=== PATIENT | male | born 1960 | race Caucasian/White ===

== ENCOUNTER 2016-12-07 00:20 | Emergency (ER) | payer OTHER ==
--- NOTE | 2016-12-07 00:27 | ED.PDOC ---
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 Timing/Duration: 1-3 hours Severity: moderate Improving Factors: nothing, other - lightheaded Worsening Factors: nothing Allergies/Adverse Reactions: Allergies NO KNOWN ALLERGY Allergy (Verified 12/07/16 01:56) Review of Systems - Review of Systems Constitutional: States: no symptoms reported EENTM: States: no symptoms reported Respiratory: States: no symptoms reported Cardiology: States: no symptoms reported Gastrointestinal/Abdominal: States: no symptoms reported Musculoskeletal: States: no symptoms reported Skin: States: no symptoms reported Neurological: States: no symptoms reported, other - lightheaded Endocrine: States: no symptoms reported Past Medical History (General) - Patient Medical History Hx Hypertension: Yes Surgical History: no surgical history Family Medical History - Family History Father Hx Cardiac Disease: Yes - CAD-dad had cabg at 84 y/o Mother Family History: No Known Physical Exam - Physical Exam General Appearance: Alert, No apparent distress Eye Exam: bilateral normal Ears, Nose, Throat: hearing grossly normal, normal ENT inspection Neck: non-tender, supple Respiratory: chest non-tender, lungs clear Cardiovascular/Chest: normal peripheral pulses, regular rate, rhythm, no murmur Gastrointestinal/Abdominal: non tender, soft, no organomegaly Back Exam: normal inspection, no vertebral tenderness Extremity: normal range of motion, non-tender Neurologic: no motor/sensory deficits, alert, oriented x 3 Skin Exam: normal color, warm/dry Lymphatic: no adenopathy Progress - Progress Progress: 12/07/16 00:42 Vital Signs - 8 hr 12/07/16 12/07/16 00:34 00:39 Temperature 97.1 F L Pulse Rate [ 56 L monitor] Respiratory 20 20 Rate Blood Pressure 139/75 [Left Arm] O2 Sat by Pulse 98 Oximetry Orthostatic bp-same as above 12/07/16 02:28 Feels better after 2 liter of IVF Laboratory Tests 12/07/16 12/07/16 00:30 02:00 WBC 7.3 RBC 4.36 L Hgb 14.0 Hct 40.2 L MCV 92.3 MCH 32.1 H MCHC 34.9 RDW 12.9 Plt Count 165 MPV 7.4 Absolute Neuts (auto) 4.80 Absolute Lymphs (auto) 1.80 Absolute Monos (auto) 0.40 Absolute Eos (auto) 0.20 Absolute Basos (auto) 0.00 Neutrophils % 66.3 Lymphocytes % 24.8 Monocytes % 5.7 Eosinophils % 2.9 Basophils % 0.3 PT 11.9 INR 1.050 PTT (SP) 31.6 Sodium 134 L Potassium 3.4 L Chloride 102 Carbon Dioxide 24 Anion Gap 11.4 L BUN 14 Creatinine 0.88 BUN/Creatinine Ratio 15.9 Random Glucose 146 H Serum Osmolality 271.4 L Calcium 8.9 Magnesium 1.9 Total Bilirubin 1.2 H Direct Bilirubin 0.2 Indirect Bilirubin 1.0 H AST 29 ALT 24 Alkaline Phosphatase 45 Creatine Kinase 203 H* CK-MB (CK-2) 8.6 H* CK-MB (CK-2) % 4.24 H Troponin I 0.04 0.04 Serum Total Protein 7.1 Albumin 4.3 - Results/Orders Results/Orders: Last Vital Signs Temp 97.1 F L 12/07/16 00:34 Pulse 56 L 12/07/16 00:34 Resp 20 12/07/16 00:39 BP 139/75 12/07/16 00:34 Pulse Ox 98 12/07/16 00:34 - EKG/XRAY/CT EKG: Kenneth, Sinus, nonspecific ST T wave Chg Comments: heart rate -57 XRAY: chest - no acute abnormalities noted Departure - Departure Clinical Impression: Light-headedness, Electrolyte imbalance Heat exhaustion Qualifiers: Encounter type: initial encounter Qualified Code(s): T67.5XXA - Heat exhaustion , unspecified, initial encounter Time of Disposition: :31 Disposition: Discharge to Home or Self Care Condition: Good Instructions: DI for Heat Exhaustion and Heat Stroke, Heat Exhaustion and Heat Stroke Referrals: Florencio Sanders MD [Primary Care Provider] - 1-2 Weeks Additional Instructions: RETURN TO EMERGENCY ROOM NEEDED;Follow up [facility] primary md 12/10/2016 call for appointment if needed;Need to drink extra fluids
[2016-12-07] MEDS ORDERED: ASPIRIN (CHEWABLE) 81 MG TAB PO ONE (00:28)
[2016-12-07] MEDS ORDERED: SODIUM CHLORIDE 0.9% 1000ML 1,000 ML IVS ONE (00:35)
[2016-12-07 00:39] VITALS: TEMP 97.1; O2SAT 98
--- NOTE | 2016-12-07 01:04 | RAD ---
Procedure: XR CHEST 1 VIEW Exam Date: 12/07/2016 Ordering Provider: Jorge Alberto Stock Clinical Indication: left arm tightness Comparison: None Findings: Cardiac silhouette: Normal Pulmonary vasculature : Normal Mediastinal contour: Normal Aortic contour: Normal Focal lung consolidation: None Pleural effusion: None Pneumothorax: None Acute bony or soft tissue abnormality: None Impression: 1. No acute abnormalities in chest. Electronically signed by: Reg Palumbo MD 12/07/2016 1:02 AM CDT
[2016-12-07] MEDS ORDERED: LACTATED RINGERS 1,000 ML IVS ONE (01:11)
[2016-12-07 02:28] VITALS: BP 124/76
== END 2016-12-07 02:37 | disposition home or self-care (01) ==
LOC: ER 00:20
DX: T67.5XXA Heat exhaustion, unspecified, initial encounter (principal); E87.8 Other disorders of electrolyte and fluid balance, not elsewhere classified; X30.XXXA Exposure to excessive natural heat, initial encounter; Y92.321 Football field as the place of occurrence of the external cause
CPT/HCPCS: 36415; 71010; 80048; 80076; 82550; 82553; 84484; 85025; 85610; 85730; 93005; J7030; J7120

== ENCOUNTER → 2017-11-07 | Outpatient (CLI) | payer OTHER ==
--- NOTE | 2017-11-07 14:37 | MRI ---
EXAM DESCRIPTION: Brain w/o Contrast: MRI. 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 Neck pain. Mild claustrophobia. COMPARISON: MRI scan of the cervical spine without contrast. TECHNIQUE: Multiplanar, high-field MRI unit, multiple diffusion sequences, multiple conventional sequences without contrast. Minimal image degradation due to patient head motion. FINDINGS: Normal FLAIR and T2-weighted signal in the periventricular white matter and castell[place]-white matter junctions of the cerebral hemispheres. . No hemorrhage, no cerebral edema, no mass-effect. Normal signal in the bilateral basal ganglia. Normal signal in the brainstem and cerebellar hemispheres. No hemorrhage, no cerebral edema, no mass-effect. Concordance of the diffusion and non-diffusion sequences with no diffusion restriction. Cortical sulci, ventricles, and other CSF spaces, and the subdural spaces are normally configured for patients age.. No effacement or displacement. No midline shift. No extra-axial hemorrhage. Normal flow signal void in the major vessels of the [place], and the venous sinuses. IACs are symmetric bilaterally. Minimal fluid signal bilateral mastoid air cells. No mass effect in the bilateral cerebellopontine angles. Pituitary gland occupies most of the sella. Base of the cerebellar tonsils is at the level of the foramen magnum. Minimal mucoperiosteal thickening in some of the paranasal sinuses. The bony calvarium is intact. IMPRESSION: 1. No hemorrhage, mass effect, cerebral edema, or midline shift. 2. No significant focal white matter or castellon matter lesions. 3. Normal noncontrast MRI diffusion study with no evidence of acute or subacute infarction. 4. Minimal inflammatory changes in the mastoid air cells and the paranasal sinuses. Electronically signed by: Carlos Anderson MD 11/07/2017 2:36 PM CDT
--- NOTE | 2017-11-07 14:57 | MRI ---
EXAM DESCRIPTION: Cervical Spine: MRI. CLINICAL HISTORY: OTHER CERVICAL DISC DEGENERATION. Mild claustrophobia COMPARISON: MRI scan of the brain without contrast on the same visit. TECHNIQUE: Multiplanar MRI, multiple sequences, non-contrast High-field.. Note minimal image degradation due to patient movement with claustrophobia. FINDINGS: C4-5: Minimal disc desiccation. Trace anterolisthesis. Trace posterior midline disc bulge not abutting the cord. Mild canal narrowing. Small uncinate spur on the right. Mild neural foraminal narrowing. Mild to moderate right facet arthrosis. Left neuroforamen is patent. C5-6: Disc desiccation and minimal disc space loss. Posterior disc bulge 3 mm abutting the cord. Small right uncinate spur. Mild canal narrowing. Mild bilateral neural foraminal narrowing. Bilateral facets are unremarkable. C6-7: Disc desiccation and mild disc space loss. Minimal anterior bulging. Minimal posterior disc bulging 3 mm abutting the cord. Moderate canal narrowing. Bilateral small uncinate spurs. Bilateral mild neural foraminal narrowing. Bilateral facets are negative.. Normal signal in the remaining cervical discs with no bulging. Disc spaces preserved. Canal and neural foramina are patent. Facets are negative. Spinal alignment anatomic curvature's.. No cord compression or cord edema. Atlantoaxial joint is minimally degenerated with minimal effusion.. Base of the cerebellar tonsils is at the level of the foramen magnum. Paravertebral soft tissues show a bright T2 signal nodule in the left thyroid lobe 2.1 cm craniocaudal, 1.5 cm AP, and 1.1 cm transverse. Otherwise negative.. Vertebral bodies are not compressed at any level. Normal marrow signal in the remaining vertebral bodies and the posterior elements. IMPRESSION: 1. Posterior C5-C6 disc bulge abutting the cord. Mild canal narrowing and bilateral neural foraminal narrowing. 2. C6-7 disc desiccation and posterior bulge abutting the cord. Bilateral mild neural foraminal narrowing. Moderate canal narrowing. 3. Tiny posterior disc desiccated disc bulge C4-5. [id number] facet arthrosis and mild right neural foraminal narrowing. 4. Nodule versus cyst in the left thyroid lobe incidentally discovered. 2.1 x 1.5 x 1.1 cm. Consider thyroid ultrasound evaluation, according to [facility] Best Practice recommendations. Please see below.*. *2.1 cm incidental thyroid nodule Recommend thyroid US. Reference: J Am Carmen Radiol. 2014;12(2): 143-50 Electronically signed by: Carlos Anderson MD 11/07/2017 2:56 PM CDT
== END ==
LOC: MRI 07:03
PROVIDERS: ATTEND Family Medicine
DX: G44.209 Tension-type headache, unspecified, not intractable (principal); G43.009 Migraine without aura, not intractable, without status migrainosus; M50.30 Other cervical disc degeneration, unspecified cervical region; E04.1 Nontoxic single thyroid nodule; M50.222 Other cervical disc displacement at C5-C6 level; M50.223 Other cervical disc displacement at C6-C7 level

== ENCOUNTER → 2017-12-26 | Outpatient (CLI) | payer OTHER ==
--- NOTE | 2017-12-29 09:01 | CT ---
EXAM DESCRIPTION: Abdomen/Pelvis w/Contrast: Computed Tomography. CLINICAL HISTORY: RLQ PAIN COMPARISON: None. TECHNIQUE: Spiral-axial scans at 5 x 5 mm intervals through the abdomen and pelvis, after nonionic IV contrast without oral contrast. Coronal and sagittal 2.0 mm reconstructions. No delayed scans. No adverse reactions. Total Exam DLP: 1098.67 mGy-cm. This exam was performed according to our departmental dose-optimization program which includes automated exposure control, adjustment of the mA and/or kV according to patient size and/or use of iterative reconstruction technique; to reduce radiation dose to as low as reasonably achievable (ALARA). FINDINGS: Lung bases and pleura: Negative Liver, Stomach, Spleen, Adrenal Glands: Long axis of the right lobe of the liver is 18.5 cm. Stomach mildly distended with gas. Remaining solid organs are negative. Pancreas, Gallbladder, Ducts: Gallbladder visualized. Otherwise unremarkable. Kidneys and Ureters: Negative. Mesentery: Unremarkable. Aorta: Normal caliber. Small Bowel: Minimally distended with gas but no air-fluid levels. Terminal Ileum/Cecum: Normal caliber. Appendix visualized. No inflammatory changes. Colon: No obstruction. Diffuse fecal matter. Pelvic Organs: Negative. Spine and Bony Pelvis: Spondylosis L5-S1 with disc space loss and bilateral foraminal narrowing. Minimal spondylosis inferior thoracic spine. Abdominal Wall/Back Soft Tissues: Bilateral fatty inguinal hernias not containing bowel. Minimal diastases at the umbilicus but not containing bowel. IMPRESSION: 1. No inflammatory changes in the right lower quadrant and no free fluid. Normal CT appearance of the terminal ileum cecum appendix and proximal colon. 2. Borderline hepatic enlargement with normal enhancement and no focal lesions in the liver. 3. Spondylosis L5-S1 with bilateral foraminal narrowing. Bilateral fatty inguinal hernias. Electronically signed by: Carlos Anderson MD 12/29/2017 8:59 AM CDT
== END ==
LOC: CT 09:44
PROVIDERS: ATTEND Family Medicine
DX: R10.31 Right lower quadrant pain (principal); R10.84 Generalized abdominal pain; K40.20 Bilateral inguinal hernia, without obstruction or gangrene, not specified as recurrent; M47.897 Other spondylosis, lumbosacral region

== ENCOUNTER → 2018-09-17 | Outpatient (CLI) | payer OTHER ==
--- NOTE | 2018-09-18 08:37 | MRI ---
EXAM DESCRIPTION: Lumbar Spine w/o Contrast CLINICAL HISTORY: LUMBAR SPONDYLOSIS COMPARISON: None Available. TECHNIQUE: MRI of the lumbar spine is performed according to our usual protocol with axial and sagittal multi sequence imaging. FINDINGS: Sagittal T2 images reveal decreased signal intensity consistent with desiccation of the intervertebral discs at all lumbar levels except L4-5. Posterior annular bulges are present at L1-2 through L5-S1. No prevertebral mass or aneurysm. Lower cord and conus appear normal. Tip of the conus is behind T12. Sagittal T1 images reveal benign marrow signal characteristics. Modic type II changes are in degenerated L5-S1 disc. Normal T1 signal intensity and appearance of the lower cord and conus. Sagittal STIR images are negative for marrow edema within the vertebral bodies or posterior elements. No paraspinous fluid collection or cystic lesion. Axial T1 and T2-weighted images were obtained to evaluate the disc levels. T12-L1: No posterior annular bulge or herniation. No spinal stenosis or neural foraminal narrowing. Facets appear normal. Normal appearance of the lower cord and conus. L1-2: Mild diffuse posterior annular bulge without spinal stenosis or significant neural foraminal narrowing. Moderate facet hypertrophy. L2-3: Mild diffuse posterior annular bulge without spinal stenosis. There is mild right sided neural foraminal narrowing. Facets appear normal. L3-4: Mild posterior annular bulge without spinal stenosis or significant neural foraminal narrowing. Mild facet hypertrophy with mild ligamentum flavum thickening. L4-5: Mild posterior annular bulge without spinal stenosis or neural foraminal narrowing. Degenerative changes of the right facet joint with subchondral cyst formation and increased fluid in the joint. Mildly hypertrophic left facet. Mild ligamentum flavum thickening bilaterally without lateral recess compromise. L5-S1: Mild posterior annular bulge or herniation. No spinal stenosis. There is moderately severe left neural foraminal narrowing with mild neural foraminal narrowing on the right. Facet hypertrophic changes are seen left more than right with no subarticular recess or lateral recess compromise. Right-sided L5 spondylolysis is present (axial image 15, series 201 and sagittal images 13 through 15, series 301 and series 401). Sacrum appears intact. No retroperitoneal mass or aneurysm. IMPRESSION: Multilevel disc degeneration with mild posterior annular bulges. Negative for spinal stenosis or acute appearing disc herniation. Right L5 spondylolysis. Electronically signed by: Milad Jiang MD 09/18/2018 8:35 AM CDT
== END ==
LOC: MRI 14:05
PROVIDERS: ATTEND Physician Assistant Medical
DX: M47.896 Other spondylosis, lumbar region (principal); M51.36 Other intervertebral disc degeneration, lumbar region

== ENCOUNTER → 2019-05-21 | Outpatient (CLI) | payer OTHER ==
--- NOTE | 2019-05-22 15:14 | MRI ---
EXAM DESCRIPTION: Brain w/o Contrast: MRI. CLINICAL HISTORY: MIGRAINE WITH AURA NOT INTRACTABLE W/O STATUS MIGRAINOSUS COMPARISON: MRI scan of the brain without gadolinium IV contrast November 2017. TECHNIQUE: Multiplanar, high-field MRI unit, multiple diffusion sequences, multiple conventional sequences without contrast. FINDINGS: Normal FLAIR and T2-weighted signal in the periventricular white matter and castellon/sub-cortical white matter junctions of the cerebral hemispheres. . No hemorrhage, no cerebral edema, no mass-effect. Normal signal in the bilateral basal ganglia. Normal signal in the brainstem and cerebellar hemispheres. No hemorrhage, no parenchymal edema, no mass-effect. Concordance of the diffusion and non-diffusion sequences with no diffusion restriction. Cortical sulci, ventricles, and other CSF spaces, and the subdural spaces are normally configured for patient's age. No effacement or displacement. No midline shift. No extra-axial hemorrhage. Normal flow signal void in the major vessels of the [place], and the venous sinuses. IACs are symmetric bilaterally. Diffuse abnormal hyperintense T2 signal in the bilateral mastoid air cells. No mass effect in the bilateral cerebellopontine angles. Pituitary gland occupies most of the sella. Base of the cerebellar tonsils is at the level of the foramen magnum. Progressive mucoperiosteal thickening in the paranasal sinuses especially right maxillary antrum in the anterior ethmoid air cells bilaterally.. The bony calvarium is intact. IMPRESSION: 1. Noncontrast MRI scan of the brain showing no acute or subacute brain abnormalities, and stable compared to the prior study. No intra-axial or extra-axial hemorrhage or mass effect. No evidence of chronic migraine white matter lesions. 2. Noncontrast MRI diffusion examination showing no evidence of acute or subacute significant ischemia or infarction. 3. Diffuse bilateral mastoiditis is unchanged. Paranasal mucoperiosteal chronic sinusitis is progressing since the prior study. Electronically signed by: Carlos Anderson MD 05/22/2019 3:13 PM [facility]
== END ==
LOC: MRI 08:01
PROVIDERS: ATTEND Family Medicine
DX: G43.109 Migraine with aura, not intractable, without status migrainosus (principal); H70.93 Unspecified mastoiditis, bilateral; J32.9 Chronic sinusitis, unspecified

== ENCOUNTER 2020-06-01 05:37 | Day surgery (SDC) | payer BC, OTHER ==
[2020-06-01] MEDS ORDERED: PROPOFOL 200 MG/20 ML VIAL IV ONE (07:00)
[2020-06-01] MEDS ORDERED: LIDOCAINE 1% 10 ML VIAL INJ ONE (07:00)
[2020-06-01] MEDS ORDERED: LACTATED RINGERS 1,000 ML ONE (07:23)
[2020-06-01] MEDS ORDERED: LACTATED RINGERS 400 ML IVS ONE (11:26)
--- NOTE | 2020-06-01 11:44 | OP ---
DATE OF PROCEDURE: 06/01/20 PREOPERATIVE DIAGNOSIS: 1. Screening colonoscopy. POSTOPERATIVE DIAGNOSIS: 1. Normal colon. 2. Very few diverticula. PROCEDURE: 1. Colonoscopy. SURGEON: Héctor Rahman MD ANESTHESIA: General. PROCEDURE: The patient was in lateral position. General anesthesia was induced. The patient was comfortable. Digital rectal exam was normal. The colonoscope was inserted and passed with minimal difficulty to the cecum as identified by the ileocecal valve and appendiceal orifice. We did have to irrigate a little bit, but the prep was adequate. Upon withdrawal, no significant polyps were seen throughout the colon. A single diverticulum was identified in the proximal sigmoid colon. The rectum was normal. The patient tolerated the procedure and was taken to Recovery to be discharged. #[id number] cc: Héctor Colunga MD [facility]
[2020-06-01 12:33] VITALS: BP 139/80; TEMP 97.5; O2SAT 99
== END 2020-06-01 12:37 | disposition home or self-care (01) ==
LOC: AMB 05:37
PROVIDERS: ATTEND Surgery
DX: Z12.11 Encounter for screening for malignant neoplasm of colon (principal); K57.30 Diverticulosis of large intestine without perforation or abscess without bleeding; I10 Essential (primary) hypertension; Z79.899 Other long term (current) drug therapy
CPT/HCPCS: 00812; 45378; J3490; J7120